=== PATIENT | female | born 1980 | race Caucasian/White ===

== ENCOUNTER 2019-05-11 07:18 | Day surgery (SDC) | payer BC ==
[~2019-05-11] VITALS: Ht 170.2 cm; Wt 76.9 kg
[2019-05-11] MEDS ORDERED: PRILOSEC 20MG20 MG PO (07:33)
[2019-05-11] MEDS ORDERED: INDERAL 20MG20 MG PO (07:34)
[2019-05-11] MEDS ORDERED: CYMBALTA 30MG30 MG PO (07:35)
[2019-05-11] MEDS ORDERED: XANAX 0.5MG0.5 MG PO (07:42)
[2019-05-11 08:39] VITALS: BP 100/62
[2019-05-11 09:25] VITALS: BP 104/51; PULSE 62; TEMP 97.7
--- NOTE | 2019-05-11 09:25 | NUR ---
Pt arrived to room after procedures via cart with Endo RN. Pt sleepy but awake. Per Endo RN, pt needed 50 mg of Benadryl for itching during procedure. Pt oriented and awake. VSS and WNL. at bedside. Water and crackers brought per pt's request. Call light within reach.
[2019-05-11 09:40] VITALS: BP 107/77; PULSE 53
--- NOTE | 2019-05-11 09:40 | NUR ---
Dr. Bro at bedside discussing procedure with patient and . Pt successfully ate crackers and water with no n/v. Pt states she still feels a little itchy from procedure but doing better. VSS and WNL.
[2019-05-11 09:55] VITALS: BP 104/67; PULSE 53
--- NOTE | 2019-05-11 09:55 | NUR ---
PT states that she is ready to go home. She meets criteria for discharge. Reviewed discharge information with pt and . They had no further questions and expressed understanding of the plan. VSS and WNL upon discharge. Pt denies n/v or pain. She is alert/oriented.
== END 2019-05-11 10:13 | disposition home or self-care (01) ==
LOC: SDCO 07:18
DX: D12.2 Benign neoplasm of ascending colon (principal); K29.80 Duodenitis without bleeding; R14.0 Abdominal distension (gaseous); R19.7 Diarrhea, unspecified; R10.13 Epigastric pain; N83.209 Unspecified ovarian cyst, unspecified side; Z88.1 Allergy status to other antibiotic agents; Z88.0 Allergy status to penicillin; Z79.899 Other long term (current) drug therapy; K21.9 Gastro-esophageal reflux disease without esophagitis; R00.2 Palpitations; F32.9 Major depressive disorder, single episode, unspecified; F41.9 Anxiety disorder, unspecified
CPT/HCPCS: J1200; J2250; J2405; J3010; J7030